=== PATIENT | female | born 1990 | race Caucasian/White ===

== ENCOUNTER 2018-10-31 10:58 | Emergency (ER) | payer BC, MEDICAID ==
[2018-10-31] MEDS ORDERED: KETOROLAC 30 MG/ML VIAL IM ONE (11:09)
--- NOTE | 2018-10-31 11:09 | Emergency Department Record ---
History of Present Illness - General Stated complaint: IUD PAINFUL Time Seen by Provider: 10/31/18 11:00 Source: Patient Mode of Arrival: Ambulatory Limitations: No limitations - History of Present Illness Initial comments: 28 female presents with pelvic pain. She states she was seen at an Urgent Care prior. The pain started mid day yesterday after intercourse. She pain palvic pain across the lower abdomen. No vaginal bleeding. No discharge. No diarrhea. No nausea, vomiting or fever. At the the provider could not see her tring from the IUD so an US was scheduled for . She has pain so she presented to the ED. The IUD has been in for 2.5 years. Normal cycles. -: Days(s) (1) Location: Suprapubic Radiation: Non-radiating Severity: Moderate Quality: Aching Consistency: Constant Improves with: None Worsens with: [place] Patient : No Associated Symptoms: Abdominal pain, Dysuria - Related Data Previous Rx's Medication Instructions Recorded Metronidazole [Flagyl] 500 mg PO Q8H #21 tablet 10/31/18 Naproxen [Naprosyn] 500 mg PO Q12H #20 tab. 10/31/18 Allergies Allergy/AdvReac Type Severity Reaction Status Date / Time No Known Drug Allergies Allergy Verified 10/31/18 11:09 Review of Systems Constitutional: Denies: Chills, Fever, Weakness Eyes: Denies: Eye discharge ENT: Denies: Congestion, Throat pain Respiratory: Denies: Cough, Dyspnea Cardiovascular: Denies: Chest pain, Syncope Endocrine: Denies: Fatigue Gastrointestinal: Reports: Abdominal pain. Denies: Diarrhea, Nausea, Vomiting Genitourinary: Denies: Dysuria, Urgency Musculoskeletal: Denies: Arthralgia, Back pain, Myalgia Skin: Denies: Bruising, Change in color, Rash Neurological: Denies: Headache Psychiatric: Denies: Anxiety Hematological/Lymphatic: Denies: Easy bleeding, Easy bruising Physical Exam - General General Appearance: Alert, Oriented x3, Cooperative, No acute distress Limitations: No limitations - Head Head exam: Atraumatic, Normal inspection - Eye Eye exam: Normal appearance - ENT ENT exam: Normal exam Ear exam: Normal external inspection Nasal Exam: Normal inspection Mouth exam: Normal external inspection - Neck Neck exam: Normal inspection - Respiratory Respiratory exam: Normal lung sounds bilaterally - Cardiovascular Cardiovascular Exam: Regular rate, Normal rhythm, Normal heart sounds - GI/Abdominal GI/Abdominal exam: Soft, Tenderness (tender suprapubic but soft). negative: Distended, Guarding, Rebound, Rigid - Rectal Rectal exam: Deferred - exam: Normal speculum exam, Vaginal discharge, Other (No definite IUD seen and certainly no string visible. Very good view of the external os was seen). negative: Vaginal bleeding, Vaginal erythema - Extremities Extremities exam: Normal inspection - Back Back exam: Denies: CVA tenderness (R), CVA tenderness (L) - Neurological Neurological exam: Alert, Oriented X3 - Psychiatric Psychiatric exam: Normal affect, Normal mood - Skin Skin exam: Dry, Intact, Normal color, Warm Course - Reevaluation(s) Reevaluation #1: 10/31/18 12:28 Wet prep is consistent with clue cells 10/31/18 12:48 The US demonstrated IUD in place, right ovarian cyst possible hemorrhagic cyst with rupture. UCG is negative 10/31/18 13:16 We discussed the results of the tests and questions were answered at the time of discharge. The patient is doing well and is comfortable with DC. DC vitals were reviewed. We discussed at length reasons to immediately return to the ED as well as close follow up. The patient will call the CHILD CARE SPECIALIST for close follow up of this ED visit to review this visit and the tests performed Disposition Disposition: Discharge Clinical Impression: Pelvic pain, Bacterial vaginosis, Hemorrhagic cyst of right ovary Disposition: Home, Self-Care Condition: (1) Good Instructions: Bacterial Vaginosis (ED), Pelvic Pain (ED), Ruptured Ovarian Cyst (ED) Additional Instructions: Call your doctor for the next available follow up appointment Review this ER visit and the tests performed with your family doctor Return to the ER for a recheck if worse, any new concerns or questions Take the prescriptions provided as directed Prescriptions: Metronidazole [Flagyl] 500 mg PO Q8H #21 tablet Naproxen [Naprosyn] 500 mg PO Q12H #20 tab. Referrals: Claudia Howard D.O. [DOCTOR OF OSTEOPATH] - [facility] [Provider Group] Forms: Patient Portal Access Time of Disposition: 12:49 Quality - Quality Measures Quality Measures: N/A - Blood Pressure Screening Does Patient Have Any of the Following: No Blood Pressure Classification: Pre-Hypertensive BP Reading Systolic Measurement: 121 Diastolic Measurement: 79 Screening for High Blood Pressure: < Pre-Hypertensive BP, F/U Documented > [G8950] Pre-Hypertensive Follow-up Interventions: Referral to alternative/primary care provider.
[2018-10-31 12:32] LABS: URINE APPEARANCE CLEAR; URINE BILIRUBIN NEGATIVE (NEGATIVE); URINE BLOOD NEGATIVE (NEGATIVE); URINE COLOR YELLOW; URINE GLUCOSE (UA) NEGATIVE (NEGATIVE); URINE KETONE NEGATIVE (NEGATIVE); URINE LEUKOCYTE ESTERASE TRACE (NEGATIVE); URINE NITRITE NEGATIVE (NEGATIVE); URINE PROTEIN NEGATIVE (NEGATIVE); URINE UROBILINOGEN 0.2 E.U./dL (0.20 - 1.00)
[2018-10-31 12:40] LABS: HCG,QUALITATIVE URINE NEGATIVE (NEGATIVE); URINE BACTERIA NONE SEEN; URINE RBC NONE SEEN (NONE SEEN); URINE WBC 0 - 2 (0-2/hpf)
--- NOTE | 2018-11-01 19:28 | ULTRASOUND REPORT ---
EXAM: ULTRASOUND PELVIC W TRANSVAG (NON-OB) HISTORY: SEVERE PELVIC PAIN. NONVISUALIZATION OF MIRENA STRING. TECHNIQUE: Transabdominal ultrasound examination of the pelvis is performed. Transvaginal scanning is also performed for further evaluation of the uterus and adnexa. COMPARISON: None. FINDINGS: Transabdominal Findings: The uterus is normal in position and smoothly marginated. It measures 9 x 5 x 3 cm. No myometrial mass is demonstrated. The endometrium thickness of 5 mm is within the limits of normal. There is an echogenic structure within the endometrial canal with posterior shadowing consistent with intrauterine contraceptive device. It is visualized extending from the fundus distally. There is a small to moderate amount of fluid within the cul-de-sac. The left ovary is visualized and normal in appearance with multiple follicles within. It measures 2.7 x 2.4 x 1.6 cm. The right ovary is visualized and measures 3.4 x 3.6 x 5.2 cm. There is a dominant cystic structure within the right ovary with debris within. This measures 2.2 x 2.6 x 2.3 cm. Blood flow is demonstrated in each ovary with color Doppler and duplex Doppler evaluation. Spectral analysis demonstrates venous and arterial waveforms within each ovary. Transvaginal Findings: No focal cervical mass is seen. A linear echogenic structure consistent with intrauterine contraceptive device is noted extending from the fundus distally. The T-bar portion of the intrauterine contraceptive device appears symmetrically positioned in the midline. The endometrium does not appear thickened. The maximum thickness is 5 mm. The left ovary is visualized and normal in appearance measuring 2.3 x 2.7 x 1.7 cm. The right ovary is visualized measuring 3.8 x 3.7 x 3.3 cm. There is a cystic structure with internal debris arising within the right ovary measuring 2.8 x 1.1 x 2.6 cm. There is a moderate amount of fluid within the cul-de-sac with low-level echoes/debris within. This may relate to hemorrhage. Blood flow is demonstrated in each ovary with color Doppler and duplex Doppler evaluation. Spectral analysis demonstrated venous and arterial waveforms in each ovary. IMPRESSION: 1. INTRAUTERINE CONTRACEPTIVE DEVICE IN PLACE APPEARING SATISFACTORY IN POSITION. 2. DOMINANT CYSTIC STRUCTURE WITH INTERNAL DEBRIS/SEPTATIONS WITHIN THE RIGHT OVARY MEASURING 2.8 X 2.1 X 2.6 CM. THIS IS SUSPICIOUS FOR A HEMORRHAGIC FOLLICLE/CYST. 3. THERE IS A MODERATE AMOUNT OF FREE FLULID WITHIN THE CUL-DE-SAC HAVING LOW- LEVEL ECHOIC WITHIN SUSPICIOUS FOR HEMORRHAGE, POSSIBLY RELATED TO CYST RUPTURE. NO EVIDENCE OF OVARIAN TORSION. JOB NUMBER: [id number] [facility]
[2018-11-02 00:23] LABS: GC SPECIMEN TYPE Vaginal
== END 2018-10-31 13:08 | disposition home or self-care (01) ==
LOC: ER 10:58
DX: N76.0 Acute vaginitis (principal); R10.2 Pelvic and perineal pain; N83.201 Unspecified ovarian cyst, right side
CPT/HCPCS: 99284 ×2; 96372; 81001; 81025; 76856; 76830; Q0111; J1885; 87210